=== PATIENT | female | born 1990 | race Caucasian/White ===

== ENCOUNTER 2019-01-07 20:36 | Emergency (ER) | payer BC ==
[2019-01-07] MEDS ORDERED: ONDANSETRON 4 MG/2 ML VIAL IVP STA (21:32)
[2019-01-07 21:47] LABS: Appearance,Urine Clear (Clear); Bilirubin,Urine Negative (Negative); Blood,Urine Negative (Negative); Color,Urine Light Yellow; Glucose,Urine (UA) Negative (Negative); Ketones,Urine Negative (Negative); Leukocyte Esterase,Urine Negative (Negative); Nitrite,Urine Negative (Negative); Protein,Urine Negative (Negative); Specific Gravity,Urine 1.008 (1.001-1.035); Urobilinogen,Urine <2.0 mg/dL (<2.0)
[2019-01-07 21:54] LABS: Basophils % (A) 0 %; Eosinophils # (A) 0.1 k/uL (0-0.7); Eosinophils % (A) 1 %; HCT 39.8 % (34.0-46.0); HGB 13.7 gm/dL (11.4-16.0); Lymphocytes # (A) 2.9 k/uL (1.0-4.8); Lymphocytes % (A) 33 %; MCH 29.4 pg (25.0-35.0); MCHC 34.6 g/dL (31.0-37.0); Mean Platelet Volume 8.5; Monocytes # (A) 0.3 k/uL (0-1.0); Monocytes % (A) 4 %; Neutrophils # (A) 5.2 k/uL (1.3-7.7); Neutrophils % (A) 59 %; Platelet Count 305 k/uL (150-450); RBC 4.68 m/uL (3.80-5.40); RDW 12.3 % (11.5-15.5); WBC 8.7 k/uL (3.8-10.6)
[2019-01-07 22:05] LABS: ALT 45 U/L (9-52); AST 34 U/L (14-36); Albumin 4.4 g/dL (3.5-5.0); Alkaline Phosphatase 96 U/L (38-126); Amylase 35 U/L (30-110); Anion Gap 7 mmol/L; Blood Urea Nitrogen 10 mg/dL (7-17); C Reactive Protein <5.0 mg/L (<10.0); Calcium 9.7 mg/dL (8.4-10.2); Carbon Dioxide 28 mmol/L (22-30); Chloride 102 mmol/L (98-107); Glucose 89 mg/dL (74-99); Lipase 71 U/L (23-300); Potassium 3.7 mmol/L (3.5-5.1); Sodium 137 mmol/L (137-145); Total Bilirubin 0.5 mg/dL (0.2-1.3); Total Protein 7.2 g/dL (6.3-8.2)
--- NOTE | 2019-01-07 23:26 | ED ---
Abdominal Pain HPI - General Chief Complaint: Abdominal Pain Stated Complaint: Flank pain Time Seen by Provider: 01/07/19 21:32 Source: patient Mode of arrival: ambulatory Limitations: no limitations - History of Present Illness Initial Comments: Patient is a 28-year-old woman presenting with right lower quadrant abdominal pain. She states that her symptoms began with a little bit of nausea last night and then early this morning pain just to the right of the umbilicus. She describes as constant, somewhat aching but there was also burning component. She states she did have a little bit of nausea which she has not had any vomiting and no change in bowel movements. No urinary symptoms. No vaginal discharge. When she discussed the symptoms with family members there was concern for appendicitis and she comes here to be evaluated. Patient declines analgesic at history and physical MD Complaint: abdominal pain -: hour(s) Location: RLQ Radiation: none Migration to: no migration Severity: moderate Quality: aching, burning Consistency: constant Improves With: nothing Worsens With: nothing Associated Symptoms: nausea - Related Data LMP (females 10-50): last week Home Medications Medication Instructions Recorded Confirmed Ibuprofen [Motrin Ib] 800 mg PO Q8H 01/07/19 01/07/19 Qtm-Avci-Mjbhy Acid 1 cap PO DAILY 01/07/19 01/07/19 [-U Capsule (formulary)] Allergies Allergy/AdvReac Type Severity Reaction Status Date / Time WHEAT Allergy Unknown Uncoded 01/07/19 21:50 Review of Systems ROS Statement: Those systems with pertinent positive or pertinent negative responses have been documented in the HPI. ROS Other: All systems not noted in ROS Statement are negative. Constitutional: Denies: fever, chills Respiratory: Denies: cough, dyspnea Cardiovascular: Denies: chest pain, palpitations Gastrointestinal: Reports: abdominal pain, nausea. Denies: vomiting, diarrhea, constipation, melena, hematochezia Genitourinary: Denies: dysuria, frequency, hematuria, abnormal menses Musculoskeletal: Denies: back pain Skin: Denies: rash Neurological: Denies: headache Past Medical History Past Medical History: No Reported History History of Any Multi-Drug Resistant Organisms: None Reported Additional Past Surgical History / Comment(s): right wrist 2011 Past Psychological History: No Psychological Hx Reported Smoking Status: Never smoker Past Alcohol Use History: Occasional Past Drug Use History: None Reported General Exam Limitations: no limitations General appearance: alert, in no apparent distress Head exam: Present: atraumatic, normocephalic Eye exam: Present: normal appearance. Absent: scleral icterus, conjunctival injection Neck exam: Present: normal inspection, full ROM Respiratory exam: Present: normal lung sounds bilaterally. Absent: respiratory distress, wheezes, rales, rhonchi, stridor Cardiovascular Exam: Present: regular rate, normal rhythm, normal heart sounds GI/Abdominal exam: Present: soft, tenderness, normal bowel sounds (Mild right lower quadrant tenderness without rebound or guarding). Absent: distended, guarding, rebound, rigid, mass Extremities exam: Present: normal inspection, normal capillary refill. Absent: pedal edema, calf tenderness Back exam: Present: normal inspection. Absent: CVA tenderness (R), CVA tenderness (L) Neurological exam: Present: alert Skin exam: Present: warm, dry, intact, normal color. Absent: rash Course Vital Signs 01/07/19 21:23 Temperature 98.2 F Pulse Rate 76 Respiratory 18 Rate Blood Pressure 133/82 O2 Sat by Pulse 100 Oximetry Medical Decision Making - Medical Decision Making Patient is 28-year-old woman with right lower quadrant pain. I reviewed the lab studies with the patient and discussed imaging. At this point she would rather wait and have reevaluation if she is not improving. I discussed appropriate further care and follow-up as well as return parameters and all questions answered. - Lab Data Result diagrams: 01/07/19 21:40 01/07/19 21:40 Lab Results 01/07/19 01/07/19 01/07/19 Range/Units 21:36 21:36 21:40 WBC (3.8-10.6) k/uL RBC (3.80-5.40) m/uL Hgb (11.4-16.0) gm/dL Hct (34.0-46.0) % MCV (80.0-100.0) fL MCH (25.0-35.0) pg MCHC (31.0-37.0) g/dL RDW (11.5-15.5) % Plt Count (150-450) k/uL Neutrophils % % Lymphocytes % % Monocytes % % Eosinophils % % Basophils % % Neutrophils # (1.3-7.7) k/uL Lymphocytes # (1.0-4.8) k/uL Monocytes # (0-1.0) k/uL Eosinophils # (0-0.7) k/uL Basophils # (0-0.2) k/uL Sodium 137 (137-145) mmol/L Potassium 3.7 (3.5-5.1) mmol/L Chloride 102 (98-107) mmol/L Carbon Dioxide 28 (22-30) mmol/L Anion Gap 7 mmol/L BUN 10 (7-17) mg/dL Creatinine 0.73 (0.52-1.04) mg/dL Est GFR (CKD-EPI)AfAm >90 (>60 ml/min/1.73 sqM) Est GFR (CKD-EPI)NonAf >90 (>60 ml/min/1.73 sqM) Glucose 89 (74-99) mg/dL Calcium 9.7 (8.4-10.2) mg/dL Total Bilirubin 0.5 (0.2-1.3) mg/dL AST 34 (14-36) U/L ALT 45 (9-52) U/L Alkaline Phosphatase 96 (38-126) U/L C-Reactive Protein <5.0 (<10.0) mg/L Total Protein 7.2 (6.3-8.2) g/dL Albumin 4.4 (3.5-5.0) g/dL Amylase 35 (30-110) U/L Lipase 71 (23-300) U/L Urine Color Light Yellow Urine Appearance Clear (Clear) Urine pH 6.0 (5.0-8.0) Ur Specific Melbeta 1.008 (1.001-1.035) Urine Protein Negative (Negative) Urine Glucose (UA) Negative (Negative) Urine Ketones Negative (Negative) Urine Blood Negative (Negative) Urine Nitrite Negative (Negative) Urine Bilirubin Negative (Negative) Urine Urobilinogen <2.0 (<2.0) mg/dL Ur Leukocyte Esterase Negative (Negative) Urine HCG, Qual Not Detected (Not Detectd) 01/07/19 Range/Units 21:40 WBC 8.7 (3.8-10.6) k/uL RBC 4.68 (3.80-5.40) m/uL Hgb 13.7 (11.4-16.0) gm/dL Hct 39.8 (34.0-46.0) % MCV 85.0 (80.0-100.0) fL MCH 29.4 (25.0-35.0) pg MCHC 34.6 (31.0-37.0) g/dL RDW 12.3 (11.5-15.5) % Plt Count 305 (150-450) k/uL Neutrophils % 59 % Lymphocytes % 33 % Monocytes % 4 % Eosinophils % 1 % Basophils % 0 % Neutrophils # 5.2 (1.3-7.7) k/uL Lymphocytes # 2.9 (1.0-4.8) k/uL Monocytes # 0.3 (0-1.0) k/uL Eosinophils # 0.1 (0-0.7) k/uL Basophils # 0.0 (0-0.2) k/uL Sodium (137-145) mmol/L Potassium (3.5-5.1) mmol/L Chloride (98-107) mmol/L Carbon Dioxide (22-30) mmol/L Anion Gap mmol/L BUN (7-17) mg/dL Creatinine (0.52-1.04) mg/dL Est GFR (CKD-EPI)AfAm (>60 ml/min/1.73 sqM) Est GFR (CKD-EPI)NonAf (>60 ml/min/1.73 sqM) Glucose (74-99) mg/dL Calcium (8.4-10.2) mg/dL Total Bilirubin (0.2-1.3) mg/dL AST (14-36) U/L ALT (9-52) U/L Alkaline Phosphatase (38-126) U/L C-Reactive Protein (<10.0) mg/L Total Protein (6.3-8.2) g/dL Albumin (3.5-5.0) g/dL Amylase (30-110) U/L Lipase (23-300) U/L Urine Color Urine Appearance (Clear) Urine pH (5.0-8.0) Ur Specific Melbeta (1.001-1.035) Urine Protein (Negative) Urine Glucose (UA) (Negative) Urine Ketones (Negative) Urine Blood (Negative) Urine Nitrite (Negative) Urine Bilirubin (Negative) Urine Urobilinogen (<2.0) mg/dL Ur Leukocyte Esterase (Negative) Urine HCG, Qual (Not Detectd) Disposition Clinical Impression: Abdominal pain Disposition: HOME SELF-CARE Condition: Good Is patient prescribed a controlled substance at d/c from ED?: No Referrals: Karime Johnson MD [Primary Care Provider] - 1-2 days
[2019-01-07 23:49] VITALS: BP 122/74; PULSE 67; RESP 20; TEMP 98
== END 2019-01-07 23:49 | disposition home or self-care (01) ==
LOC: EC 20:36
DX: R10.31 Right lower quadrant pain (principal); R11.0 Nausea; Z79.1 Long term (current) use of non-steroidal anti-inflammatories (NSAID); Z91.018 Allergy to other foods
CPT/HCPCS: 36415; 80053; 82150; 83690; 85025; 86140; 81003; 81025; 99283; 96374; J2405

== ENCOUNTER 2019-07-20 00:28 | Emergency (ER) | payer BC ==
[2019-07-20 00:40] VITALS: BP 125/82; PULSE 73; RESP 20; TEMP 98.6
[2019-07-20] MEDS ORDERED: SODIUM CHLORIDE 0.9% 500 ML 500 ML IV ONE (00:46)
--- NOTE | 2019-07-20 00:57 | ED ---
Female Urogenital HPI - General Chief complaint: Vaginal Bleeding Stated complaint: 7 weeks Preg, Vaginal Bleeding Time Seen by Provider: 07/20/19 00:46 Source: patient Mode of arrival: ambulatory Limitations: no limitations - History of Present Illness Initial comments: This patient is 28-year-old woman who presents to be evaluated for vaginal bleeding. The patient states that this came on approximately an hour ago while she was getting ready go to sleep. Patient describes it as small amount, consistent with spotting. The patient notes that she is in early , she has had an ultrasound then by the ultrasound she believes she is about 7 weeks in 2 days . Patient states that she did have some cramping last week but she is not having any currently. MD Complaint: vaginal bleeding Onset/Timin -: hour(s) Improves with: none Worsens with: none Patient : Yes Number of weeks : 7 Associated Symptoms: denies other symptoms - Related Data Sexually active: Yes Home Medications Medication Instructions Recorded Confirmed Thm-Jzaa-Jczrr Acid 1 cap PO DAILY 01/07/19 07/22/19 [-U Capsule (formulary)] Allergies Allergy/AdvReac Type Severity Reaction Status Date / Time gluten AdvReac Nausea/MIGR Verified 07/22/19 12:31 LEILANI Review of Systems ROS Statement: Those systems with pertinent positive or pertinent negative responses have been documented in the HPI. ROS Other: All systems not noted in ROS Statement are negative. Constitutional: Denies: fever Respiratory: Denies: cough, dyspnea Cardiovascular: Denies: chest pain, palpitations Gastrointestinal: Reports: constipation. Denies: abdominal pain, nausea, vomiting, diarrhea Genitourinary: Reports: abnormal menses. Denies: urgency, dysuria, frequency, hematuria, discharge Musculoskeletal: Denies: back pain Skin: Denies: rash Neurological: Denies: headache Past Medical History Past Medical History: No Reported History History of Any Multi-Drug Resistant Organisms: None Reported Additional Past Surgical History / Comment(s): right wrist 2011 Past Psychological History: No Psychological Hx Reported Smoking Status: Never smoker Past Alcohol Use History: Occasional Past Drug Use History: None Reported General Exam Limitations: no limitations General appearance: alert, in no apparent distress Head exam: Present: atraumatic, normocephalic Eye exam: Present: normal appearance. Absent: scleral icterus, conjunctival injection ENT exam: Present: normal oropharynx Neck exam: Present: normal inspection Respiratory exam: Present: normal lung sounds bilaterally. Absent: respiratory distress, wheezes, rales, rhonchi, stridor Cardiovascular Exam: Present: regular rate, normal rhythm, normal heart sounds. Absent: systolic murmur, diastolic murmur, rubs, gallop GI/Abdominal exam: Present: soft. Absent: distended, tenderness, guarding, karon ound, rigid, mass Extremities exam: Present: normal inspection, normal capillary refill. Absent: pedal edema, calf tenderness Back exam: Present: normal inspection. Absent: CVA tenderness (R), CVA tenderness (L) Neurological exam: Present: alert Skin exam: Present: warm, dry, intact, normal color. Absent: rash Course Vital Signs 07/20/19 00:38 Temperature 98.6 F Pulse Rate 73 Respiratory 20 Rate Blood Pressure 125/82 O2 Sat by Pulse 100 Oximetry Medical Decision Making - Lab Data Result diagrams: 07/20/19 01:20 Lab Results 07/20/19 07/20/19 07/20/19 Range/Units 01:20 01:20 01:20 WBC 7.5 (3.8-10.6) k/uL RBC 4.20 (3.80-5.40) m/uL Hgb 12.7 (11.4-16.0) gm/dL Hct 34.8 (34.0-46.0) % MCV 83.0 (80.0-100.0) fL MCH 30.3 (25.0-35.0) pg MCHC 36.5 (31.0-37.0) g/dL RDW 11.4 L (11.5-15.5) % Plt Count 265 (150-450) k/uL Neutrophils % 59 % Lymphocytes % 34 % Monocytes % 3 % Eosinophils % 1 % Basophils % 0 % Neutrophils # 4.5 (1.3-7.7) k/uL Lymphocytes # 2.6 (1.0-4.8) k/uL Monocytes # 0.3 (0-1.0) k/uL Eosinophils # 0.1 (0-0.7) k/uL Basophils # 0.0 (0-0.2) k/uL HCG, Quant 8424.9 mIU/mL Blood Type O Negative Blood Type Confirm Blood Type Recheck No Previous Record Bld Type Recheck Status CABO Indicated 07/20/19 Range/Units 01:49 WBC (3.8-10.6) k/uL RBC (3.80-5.40) m/uL Hgb (11.4-16.0) gm/dL Hct (34.0-46.0) % MCV (80.0-100.0) fL MCH (25.0-35.0) pg MCHC (31.0-37.0) g/dL RDW (11.5-15.5) % Plt Count (150-450) k/uL Neutrophils % % Lymphocytes % % Monocytes % % Eosinophils % % Basophils % % Neutrophils # (1.3-7.7) k/uL Lymphocytes # (1.0-4.8) k/uL Monocytes # (0-1.0) k/uL Eosinophils # (0-0.7) k/uL Basophils # (0-0.2) k/uL HCG, Quant mIU/mL Blood Type Blood Type Confirm O Negative Blood Type Recheck Bld Type Recheck Status Disposition Clinical Impression: Threatened Disposition: HOME SELF-CARE Condition: Fair Instructions (If sedation given, give patient instructions): Threatened Miscarriage (ED) Additional Instructions: Your hCG level today is 8425. Is patient prescribed a controlled substance at d/c from ED?: No Referrals: Karime Johnson MD [Primary Care Provider] - 1-2 days
[2019-07-20 01:32] LABS: Basophils % (A) 0 %; Eosinophils # (A) 0.1 k/uL (0-0.7); Eosinophils % (A) 1 %; HCT 34.8 % (34.0-46.0); HGB 12.7 gm/dL (11.4-16.0); Lymphocytes # (A) 2.6 k/uL (1.0-4.8); Lymphocytes % (A) 34 %; MCH 30.3 pg (25.0-35.0); MCHC 36.5 g/dL (31.0-37.0); Mean Platelet Volume 6.7; Monocytes # (A) 0.3 k/uL (0-1.0); Monocytes % (A) 3 %; Neutrophils # (A) 4.5 k/uL (1.3-7.7); Neutrophils % (A) 59 %; Platelet Count 265 k/uL (150-450); RDW 11.4 % (11.5-15.5); WBC 7.5 k/uL (3.8-10.6)
--- NOTE | 2019-07-20 01:40 | US ---
EXAMINATION TYPE: Transabdominal DATE OF EXAM: 07/20/2019 1:25 AM COMPARISON: NONE CLINICAL HISTORY: pain/bleeding, R/O ectopic. Bleeding EXAM PERFORMED: Transvaginal (TV) and Transabdominal (TA) EXAM MEASUREMENTS: GESTATIONAL AGE / DATING Physician Established: (8 weeks/6 days) EDC: 02/23/2020 Dates by LMP: (8 weeks/6 days) EDC: 02/23/2020 Dates by First Scan: No previous this is first scan Dates by Current Scan for: (5 weeks/6 days) EDC: 03/15/2020 MATERNAL ANATOMY Uterus: 8.8 x 3.3 x 4.2 cm Right Ovary: Obscured by bowel gas Left Ovary: Obscured by bowel gas Post CDS / Adnexa: wnl Presence of free fluid: no Presence of corpus luteal cyst: no Presence of subchorionic bleed: no GESTATION / SURVEY CRL: .30 (5 weeks/6 days) Yolk Sac (normal less than 6mm): .3 Heart Rate: No heart tones see. IUP: Demise Beta HcG (if available): Not available at this time No heart tones seen. IMPRESSION: 3 mm pole without cardiac activity seen. This is consistent with intrauterine demise at a pproximately 5 weeks 6 days gestation.
== END 2019-07-20 02:20 | disposition home or self-care (01) ==
LOC: EC 00:28
DX: O20.0 Threatened abortion (principal); Z3A.01 Less than 8 weeks gestation of pregnancy; Z91.018 Allergy to other foods
CPT/HCPCS: 36415; 76801; 76817; 84702; 85025; 86900; 86901; 99284

== ENCOUNTER 2019-07-22 12:02 | Emergency (ER) | payer BC ==
[2019-07-22] MEDS ORDERED: Rhogam IMMUNE GLOBULIN 1,500 UNIT/1 ML IM ONE (13:06)
--- NOTE | 2019-07-22 13:45 | ED ---
Female Urogenital HPI - General Chief complaint: Urogenital Stated complaint: miscarriage Time Seen by Provider: 07/22/19 12:46 Source: patient, RN notes reviewed, old records reviewed Mode of arrival: ambulatory Limitations: no limitations - History of Present Illness Initial comments: Latrice is a 28-year-old female presents emergency department today for needing a RhoGAM injection. She was seen in emergency department 3 days ago was sinus threatened miscarriage. She states she followed up with her [facility], and they completed ultrasound again today which showed no evidence of intrauterine she did have bleeding and clotting since that time. Patient reports that she did not receive any RhoGAM shot on her initial ER visit and she does h ave a negative blood type. She reports is her second miscarriage within the past year. She states she's was to follow-up with her [facility] NUTRITION[facility] next week to have further testing and possible genetic testing relation to her history of miscarriage. - Related Data Home Medications Medication Instructions Recorded Confirmed Mce-Otel-Gncre Acid 1 cap PO DAILY 01/07/19 07/22/19 [-U Capsule (formulary)] Allergies Allergy/AdvReac Type Severity Reaction Status Date / Time gluten AdvReac Nausea/MIGR Verified 07/22/19 12:31 LEILANI Review of Systems ROS Statement: Those systems with pertinent positive or pertinent negative responses have been documented in the HPI. ROS Other: All systems not noted in ROS Statement are negative. Past Medical History Past Medical History: No Reported History History of Any Multi-Drug Resistant Organisms: None Reported Additional Past Surgical History / Comment(s): right wrist 2010 Past Psychological History: No Psychological Hx Reported Smoking Status: Never smoker Past Alcohol Use History: Occasional Past Drug Use History: None Reported General Exam - General Exam Comments Initial Comments: 28-year-old female. Alert and oriented 3. No distress. Limitations: no limitations General appearance: alert, in no apparent distress Head exam: Present: atraumatic, normocephalic, normal inspection Eye exam: Present: normal appearance, PERRL, EOMI. Absent: scleral icterus, conjunctival injection, periorbital swelling ENT exam: Present: normal exam Neck exam: Present: normal inspection. Absent: tenderness, meningismus, lymphadenopathy Respiratory exam: Present: normal lung sounds bilaterally. Absent: respiratory distress, wheezes, rales, rhonchi, stridor Cardiovascular Exam: Present: regular rate, normal rhythm, normal heart sounds. Absent: systolic murmur, diastolic murmur, rubs, gallop, clicks GI/Abdominal exam: Present: soft, normal bowel sounds. Absent: distended, tenderness, guarding, rebound, rigid Extremities exam: Present: normal inspection, full ROM, normal capillary refill. Absent: tenderness, pedal edema, joint swelling, calf tenderness Back exam: Present: normal inspection Neurological exam: Present: alert, oriented X3, CN II-XII intact Psychiatric exam: Present: normal affect, normal mood Skin exam: Present: warm, dry, intact, normal color. Absent: rash Course Vital Signs 07/22/19 12:15 Temperature 98.6 F Pulse Rate 77 Respiratory 18 Rate Blood Pressure 120/76 O2 Sat by Pulse 99 Oximetry Medical Decision Making - Medical Decision Making 28-year-old female presents requesting a RhoGAM shot. She is here after having bleeding and diagnosed with threatened miscarriage. She is Rh- blood type. Patient's hCG level on the was 8427. Today HCG is now 942. Patient is supposed to take medication and follow-up with her [facility] NUTRITION[facility] in 2 days for recheck. I discussed that this does confirm the Patient having miscarriage. She will receive RhoGAM in the ER. Discussed appropriate follow-up with her OB. She has no pain or distress. She denies any other complaints this time. Discharged after RhoGAM in stable condition. - Lab Data Lab Results 07/22/19 07/22/19 Range/Units 13:10 13:55 HCG, Quant 924.7 mIU/mL Blood Type O Negative Blood Type Recheck O Neg Bld Type Recheck Status No Antibody Screen NEGATIVE Disposition Clinical Impression: Miscarriage Disposition: HOME SELF-CARE Condition: Good Instructions (If sedation given, give patient instructions): Miscarriage (ED) Additional Instructions: She is advised to a follow-up with her [facility] NUTRITION[facility] in 2 days. Return to the emergency department if any alarming signs or symptoms occur. Is patient prescribed a controlled substance at d/c from ED?: No Referrals: Karime Johnson MD [Primary Care Provider] - 1-2 days Time of Disposition: 14:07
[2019-07-22 16:07] VITALS: BP 123/65; PULSE 78; RESP 20; TEMP 98
== END 2019-07-22 15:05 | disposition home or self-care (01) ==
LOC: EC 12:02
DX: O03.9 Complete or unspecified spontaneous abortion without complication (principal); Z98.890 Other specified postprocedural states; Z91.018 Allergy to other foods
CPT/HCPCS: 36415; 86900; 86901; 86850; 84702; 99284; 96372; J2791

== ENCOUNTER 2020-05-25 14:05 | Outpatient (CLI) | payer BC ==
[2020-05-25 15:38] VITALS: BP 112/78; PULSE 86; RESP 18; TEMP 98.2
--- NOTE | 2020-05-25 18:00 | P.MSEPDOC ---
Presenting Problems - Arrival Data Date of Arrival on Unit: 05/25/20 Time of Arrival on Unit: 14:05 Mode of Transport: Ambulatory - Complaint OB-Reason for Admission/Chief Complaint: Rule Out PROM Comment: pt presented to triage for possible PROM at 0730 this am, no leaking since Medical History - Information : 3 Para: 0 Term: 0 : 0 Abortions: Spontaneous or Elective: 2 Number of Living Children: 0 - Gestational Age Gestational Age by ERNESTO (wks/days): 27 Weeks and 2 Days Review of Systems - Review of Systems Constitutional: No problems Breast: No problems ENT: No problems Cardiovascular: No problems Respiratory: No problems Gastrointestinal: No problems Genitourinary: No problems Musculoskeletal: No problems Neurological: No problems Skin: No problems Vital Signs - Temperature Temperature: 98.2 F Temperature Source: Temporal Artery Scan - Pulse Right Brachial Pulse Rate: 86 Pulse Assessment Method: Automatic Cuff - Respirations Respiratory Rate: 18 Oxygen Delivery Method: Room Air O2 Sat by Pulse Oximetry: 98 - Blood Pressure Right Arm Blood Pressure: 112/78 Blood Pressure Mean: 89 Blood Pressure Source: Automatic Cuff Medical Screen Scoring (Pre) - Cervical Exam Dilation: 0 cm = 0 Effacement: Exam Deferred Membranes: Intact - Uterine Contractions Frequency: N/A Duration: N/A Intensity: N/A - Maternal Vital Signs Maternal Temperature: N/A Maternal Blood Pressure: N/A Signs of Preeclampsia: N/A Maternal Respirations: N/A - Maternal Trauma Maternal Trauma: N/A - Assessment - Baby A Baseline FHR: 135 Heart Rate - NICHD Category: Category I (Normal) = 0 Position: N/A Station: N/A - Total Score - Baby A Total Score - Baby A: 0 - Total Score - Baby B Total Score - Baby B: 0 - Total Score - Baby C Total Score - Baby C: 0 - Level of Risk - Baby A Level of Risk - Baby A: Low (0-5) - Level of Risk - Baby B Level of Risk - Baby B: Low (0-5) - Level of Risk - Baby C Level of Risk - Baby C: Low (0-5) Physician Notification (Pre) - Physician Notified Physician Notified Date: 05/25/20 Physician Notified Time: 14:28 New Order Received: Yes - Notification Comment Comment: amniosure negative, cat 1 FHT, no contractions, cervix closed, pt to follow up with her OB on Mon Disposition - Disposition OB Disposition: Discharge to home, Written follow up instructions reviewed Discharge Date: 05/25/20 Discharge Time: 15:15 I agree with the RN Medical Screening Exam: Yes Risk & Benefit of care provided described in d/c instruction: Yes Diagnosis: FALSE LABOR BEFORE 37 COMPLETED WEEKS OF GEST, THIRD TRI
== END 2020-05-25 15:15 | disposition home or self-care (01) ==
LOC: FBPOP 14:05
PROVIDERS: ATTEND Obstetrics & Gynecology
DX: O47.03 False labor before 37 completed weeks of gestation, third trimester (principal); Z3A.27 27 weeks gestation of pregnancy
CPT/HCPCS: 84112; 99213

== ENCOUNTER 2020-08-03 14:47 | Inpatient (IN) | payer BC ==
[2020-08-03] MEDS ORDERED: AMPICILLIN 2,000 MG in SODIUM CHLORIDE 0.9% 100 ML IVPB STA (15:29)
[2020-08-03] MEDS ORDERED: OXYTOCIN 10 UNIT/ML 1 ML VIAL IM PRN (15:29)
[2020-08-03] MEDS ORDERED: LIDOCAINE 0.5% (PF) 5 MG/ML (50 ML SDV) SQ PRN (15:29)
[2020-08-03] MEDS ORDERED: METHYLERGONOVINE 0.2 MG/ML 1 ML AMP IM PRN (15:29)
[2020-08-03] MEDS ORDERED: TERBUTALINE 1 MG/ML VIAL SQ PRN (15:29)
[2020-08-03] MEDS ORDERED: CARBOPROST TROMETHAMINE 250 MCG/ML 1 ML AMP IM PRN (15:29)
[2020-08-03] MEDS: LACTATED RINGERS 1,000 ML IV SCH ×2 (15:35→16:18)
[2020-08-03 16:01] LABS: Basophils % (A) 0 %; Eosinophils # (A) 0.1 k/uL (0-0.7); Eosinophils % (A) 1 %; HCT 33.4 % (34.0-46.0); HGB 11.8 gm/dL (11.4-16.0); Lymphocytes # (A) 1.5 k/uL (1.0-4.8); Lymphocytes % (A) 14 %; MCH 30.5 pg (25.0-35.0); MCHC 35.3 g/dL (31.0-37.0); MCV 86.5 fL (80.0-100.0); Mean Platelet Volume 8.5; Monocytes # (A) 0.3 k/uL (0-1.0); Monocytes % (A) 3 %; Neutrophils # (A) 8.9 k/uL (1.3-7.7); Neutrophils % (A) 82 %; Platelet Count 293 k/uL (150-450); RBC 3.86 m/uL (3.80-5.40); WBC 10.9 k/uL (3.8-10.6)
[2020-08-03 16:13] LABS: ALT 19 U/L (4-34); AST 26 U/L (14-36); African American GFR (CKD) >90 (>60 ml/min/1.73 sqM); Blood Urea Nitrogen 7 mg/dL (7-17); LDH 485 U/L (313-618); Non-African American GFR(CKD) >90 (>60 ml/min/1.73 sqM); Uric Acid 4.7 mg/dL (3.7-7.4)
[2020-08-03] MEDS ORDERED: SODIUM CHLORIDE 0.9% 100 ML BAG ONE (16:30)
[2020-08-03] MEDS ORDERED: fentaNYL (PF) 50 MCG/ML 5 ML AMP ONE (16:30)
[2020-08-03] MEDS ORDERED: ROPIVACAINE 5MG/ML 20ML VIAL ONE (16:30)
--- NOTE | 2020-08-03 17:54 | P.HPOB ---
History of Present Illness H&P Date: 08/03/20 Chief Complaint: Intrauterine at term: Suspected gestational hyper tension: BHUMI Ocampo is a 29-year-old at 37 weeks gestation who arrives following rupture membranes at approximately 1145 this morning. Patient relates that she was in her corrugated box machine operator's office down in the [facility] and she was having a nonstress test because they were concerned about some asymmetrical swelling she was having and they were concerned about gestational hypertension versus preeclampsia. The nonstress test Angella was nonreactive so she was sent for a biophysical profile which was fine. She relates that when she started have the ultrasound done that she felt a pop and be leak of fluid and at that point she informed computer support technician that she was leaking some fluid and she was told that it was likely mucous plug or some urine and a continued with the ultrasound did and as far as I can tell did not inform anyone else. Following the biophysical profile she went to work in [place] and she continued to leak so she and her came to clear in [place] where verification of spotting is rupture membranes was made. She was leoncio every 2-3 minutes and was making cervical change she was dilated initially to 2 cm heart percent effaced -1 station and then approxi mately hour to hour and half later she was 300 and 0 station. At this time she is 600% and +1 station. She relates that she has had 2 other miscarriages in last 12 months or so as well. She seems very reliable in her information. Her blood pressures today are a little elevated anywhere from 140s to 150s over 90s. Preeclampsia clamps bus far have been negative but a urine is pending. She denies any other medical issues or problems. She denies past medical history. Past surgical history did does include wisdom tooth surgery and wrist surgery. ALLERGIES none social history is unremarkable and family history is noncontributory. A category 1 tracing is noted as well. An epidural has al ready been placed at this time. She is much more comfortable at this time. Should blood pressures continued to rise, she may needle ablate all or other antihypertensive. However at this time with negative pre-clamped labs we'll continue to monitor closely. Past Medical History Past Medical History: No Reported History History of Any Multi-Drug Resistant Organisms: None Reported Additional Past Surgical History / Comment(s): right wrist 2010 Past Anesthesia/Blood Transfusion Reactions: Previous Problems w/ Anesthesia, Family History of Problems w/ Anesthesia Past Psychological History: No Psychological Hx Reported Smoking Status: Never smoker Past Alcohol Use History: Occasional Past Drug Use History: None Reported - Past Family History Mother Family Medical History: No Reported History Medications and Allergies Home Medications Medication Instructions Recorded Confirmed Type Qcn-Bojy-Ohwel Acid 1 cap PO DAILY 01/07/19 08/03/20 History [-U Capsule (formulary)] RX: Aspirin [Children's Aspirin] 81 mg PO DAILY 05/25/20 08/03/20 History Allergies Allergy/AdvReac Type Severity Reaction Status Date / Time gluten AdvReac Nausea/MIGR Verified 08/03/20 15:01 LEILANI Exam Osteopathic Statement: *. No significant issues noted on an osteopathic structural exam other than those noted in the History and Physical/Consult. Vital Signs Temp Pulse Resp BP Pulse Ox 08/03/20 15:20 97.6 F 96 18 185/99 99 Intake and Output 08/03/20 08/03/20 08/03/20 06:59 14:59 22:59 Other: Weight 86.183 kg - OBG Physical Exam Breast: both: normal (no masses) Abdomen: bowel sounds normal, no diffuse tenderness, no bruit present, no guarding noted, no hepatomegaly, no splenomegaly, no mass Vulva: both: normal Vagina: normal moisture, no discharge Cervix: no lesion, no discharge Uterus: normal size, normal contour Adnexa: both: normal Anus/Rectum: normal perianal skin, no rectal mass, no hemorrhoids, heme negative Results Result Diagrams: 08/03/20 15:48 08/03/20 15:48 Abnormal Lab Results - Last 24 Hours (Table) 08/03/20 Range/Units 15:48 WBC 10.9 H (3.8-10.6) k/uL Hct 33.4 L (34.0-46.0) % Neutrophils # 8.9 H (1.3-7.7) k/uL
[2020-08-03] MEDS ORDERED: AMPICILLIN 1,000 MG in SODIUM CHLORIDE 0.9% 50 ML IVPB SCH (19:30)
[2020-08-03] MEDS ORDERED: LABETALOL 5 MG/ML VIAL MDV IVP STA (19:34)
[2020-08-03 20:09] LABS: Protein/Creatinine Ratio,Urine 0.188
--- NOTE | 2020-08-03 22:19 | P.PROBDLV ---
Vaginal Delivery Note - . Vaginal Delivery Note: Patient progressed to complete and pushing with vacuum assisted vaginal delivery of a viable male over a second degree perineal laceration. Should be noted that the patient pushed for a little over 90 minutes and had complete physical exhaustion and with the presenting part feeling asynclitic a decision to assist with vacuum was made. She brought the baby to the perineum but was unable to get the baby out the rest of the way on vacuum was applied and was p umped to 40 mmHg and with her pushing and one pole the baby was delivered without difficulty and the vacuum was disengaged. Anterior posterior shoulders were then easily delivered. Baby was delivered from right occiput transverse position. With some asynclitism. Once baby was fully delivered mouth nares were bulb suctioned and baby was placed on mother's abdomen where the umbilical cord was allowed to pulsate for 45 seconds prior to clamping and cutting with spontaneous cry noted. Nursery personnel was present and assumed care. Placenta was then delivered intact and Pitocin was added to the IV. scores were 9 and 10 at one and 5 minutes respectively and the weight was 6 lbs. 14 oz. Second degree perineal laceration was then repaired with 3-0 Vicryl following 1% Xylocaine for analgesia. Inspection of the vagina also revealed a left vaginal wall laceration which was also repaired with 3-0 Vicryl fine 1% Xylocaine for analgesia in a running fashion. Both mother and baby are stable following delivery.
[2020-08-03] MEDS ORDERED: diphenhydrAMINE 25 MG CAP PO PRN (22:22)
[2020-08-03] MEDS ORDERED: diphenhydrAMINE 50 MG CAP PO PRN (22:22)
[2020-08-03] MEDS ORDERED: BENZOCAINE/MENTHOL SPRAY 1 GM/SPRAY AEROSOL TOPICAL PRN (22:22)
[2020-08-03] MEDS ORDERED: ACETAMINOPHEN TAB 325 MG TAB PO PRN (22:22)
[2020-08-03] MEDS ORDERED: HYDROCORTISONE 2.5% RECTAL CREAM 30 GM TUBE RECTAL PRN (22:22)
[2020-08-03] MEDS ORDERED: HYDROcodone/APAP 5-325MG 1 EACH TAB PO PRN (22:22)
[2020-08-03] MEDS ORDERED: LANOLIN CREAM 5 GM TUBE TOPICAL PRN (22:22)
[2020-08-03] MEDS ORDERED: MEASLES-MUMPS-RUBELLA VACC/PF 12,500 UNIT/0.5 ML VIAL SQ ONE (22:22)
[2020-08-03] MEDS ORDERED: SIMETHICONE 80 MG CHEWABLE PO PRN (22:22)
[2020-08-03] MEDS ORDERED: diphenhydrAMINE 50 MG/ML 1 ML VIAL IVP PRN ×2 (22:22)
[2020-08-03] MEDS ORDERED: OXYTOCIN 20 UNITS/1000 ML NS 1,000 ML IV SCH (22:30)
[2020-08-03] MEDS ORDERED: ZOLPIDEM 5 MG TAB PO PRN (23:00)
[2020-08-03] MEDS: IBUPROFEN 600 MG TAB PO PRN (23:42)
[2020-08-04 00:01] VITALS: RESP 16
[2020-08-04 04:07] LABS: Basophils % (A) 0 %; Eosinophils % (A) 0 %; HCT 23.4 % (34.0-46.0); Lymphocytes # (A) 1.2 k/uL (1.0-4.8); Lymphocytes % (A) 9 %; MCH 31.1 pg (25.0-35.0); MCV 86.4 fL (80.0-100.0); Mean Platelet Volume 10.2; Monocytes # (A) 0.4 k/uL (0-1.0); Monocytes % (A) 3 %; Neutrophils # (A) 11.8 k/uL (1.3-7.7); Neutrophils % (A) 87 %; Platelet Count 241 k/uL (150-450); RBC 2.71 m/uL (3.80-5.40); WBC 13.6 k/uL (3.8-10.6)
[2020-08-04 04:32] LABS: HGB 8.4 gm/dL (11.4-16.0)
--- NOTE | 2020-08-04 08:03 | P.PNOBGVD ---
Subjective - Subjective Principal diagnosis: day 1 Interval history: Negative seen and evaluated. Her vital signs morning are improved. Her tachycardia from last night is also improved. She relates that she is going to approximate had an hour of blood that is relatively red. We did discuss that she had a fairly significant left vaginal wall laceration was bleeding but did not appear to be bleeding when we finished last night with repair, but if she continued to have bleeding would need to do an evaluation make sure that that is not where as the bleeding is coming from. Her vital signs again are otherwise stable with improved blood pressure. In talking to her she denies any signs or symptoms of hypovolemia despite having a hemoglobin of 8.4 which is down from 11 last night. She is ambulating without any difficulty denies dizziness or weakness. Is not short of breath and has no other issues this morning. We'll continue to monitor closely. Heart otherwise regular, lungs clear, extremities without pain. Abdomen soft uterus is firm and lochia is again reported to be moderate. There is no heavy flow of bright red blood and she relates that its only just a little bit more than a trickle but is continuing. Should there still be bleeding from her laceration consideration for either repair or vaginal packing can certainly be made to work towards hemostasis. Patient reports: Reports appetite normal, Reports voiding normally, Reports pain well controlled, Reports ambulating normally : doing well Objective - Latest Vital Signs Latest vital signs: Vital Signs Temp Pulse Resp BP Pulse Ox 08/04/20 03:04 97.8 F 84 16 132/83 97 08/04/20 00:00 98.6 F 107 H 16 141/87 08/03/20 23:30 98.3 F 107 H 16 157/90 08/03/20 23:00 99.0 F 96 16 158/87 08/03/20 22:45 98.8 F 102 H 16 157/94 08/03/20 22:30 99.1 F 96 16 159/95 08/03/20 22:15 99.0 F 91 16 155/74 08/03/20 22:00 98.8 F 82 18 149/77 08/03/20 15:20 97.6 F 96 18 185/99 99 08/03/20 15:04 97.6 F 96 18 185/99 99 Intake and Output 08/03/20 08/04/20 08/04/20 22:59 06:59 14:59 Other: # Voids 1 Weight 86.183 kg - Exam Lungs: bilateral: normal Chest: Normal S1, Normal S2 Extremities: Present: normal Abdomen: Present: normal appearance, soft Uterus: Present: normal, firm - Labs Labs: Abnormal Lab Results - Last 24 Hours (Table) 08/03/20 08/04/20 Range/Units 15:48 03:58 WBC 10.9 H 13.6 H (3.8-10.6) k/uL RBC 2.71 L (3.80-5.40) m/uL Hgb 8.4 L D (11.4-16.0) gm/dL Hct 33.4 L 23.4 L (34.0-46.0) % Neutrophils # 8.9 H 11.8 H (1.3-7.7) k/uL
[2020-08-04] MEDS: SENNOSIDES-DOCUSATE SODIUM 1 EACH TAB PO SCH ×2 (08:07→21:19)
[2020-08-04] MEDS: IBUPROFEN 600 MG TAB PO PRN ×3 (08:07→21:19)
--- NOTE | 2020-08-04 09:19 | P.PN ---
Progress Note - Text Progress Note Date: 08/04/20 Seen and reevaluated. bleeding much better now. exam done laceration repairs appear intact and are not bleeding. cont care for now. all questions answered
[2020-08-04] MEDS: LABETALOL 100 MG TAB PO SCH ×2 (18:37→21:19)
[2020-08-05] MEDS: IBUPROFEN 600 MG TAB PO PRN (03:26)
[2020-08-05] MEDS: SENNOSIDES-DOCUSATE SODIUM 1 EACH TAB PO SCH (08:16)
--- NOTE | 2020-08-05 08:53 | P.DS ---
Providers Date of admission: 08/03/20 15:19 Expected date of discharge: 08/05/20 Attending physician: Javy Lemus Primary care physician: Stated None Hospital Course: patient is doing very well day 2. She is ambulating, voiding and tolerating her diet. She voices no complaints. Her vital signs are stable and she is afebrile. Blood pressures remained mildly elevated in the 140s to 150s over 90s. She did receive 1 dose of labetalol last night done get a dose this morning. Prescription for labetalol was 4 to the pharmacy she does check her blood pressures at home so she can certainly if her blood pressures above 150 or above 100 take a labetalol she will follow up with me or my office in 2-3 days and we will retest her blood pressure for evaluation of labetalol. Otherwise she is to follow up with her geopolitics teacher in 6 weeks. Vital signs are stable and afebrile. Heart regular, lungs clear, extremities without pain. Abdomen is soft, uterus is firm bowel sounds are noted. Lochia is reported be light Assessment day 2. Plan discharged home follow up with her geopolitics teacher in 6 weeks in follow-up for blood pressure check in 2-3 days Patient Condition at Discharge: Good Plan - Discharge Summary New Discharge Prescriptions: New Ibuprofen [Motrin] 600 mg PO Q6HR PRN #30 tab PRN Reason: Pain Labetalol [Trandate] 100 mg PO BID 30 Days #60 tab No Action Dxr-Xgyk-Eflcq Acid [-U Capsule (formulary)] 1 cap PO DAILY Aspirin [Children's Aspirin] 81 mg PO DAILY Discharge Medication List Nhx-Uhai-Etwmv Acid [-U Capsule (formulary)] 1 cap PO DAILY 01/07/19 [History] Aspirin [Children's Aspirin] 81 mg PO DAILY 05/25/20 [History] Ibuprofen [Motrin] 600 mg PO Q6HR PRN #30 tab 08/05/20 [Rx] Labetalol [Trandate] 100 mg PO BID 30 Days #60 tab 08/05/20 [Rx] Follow up Appointment(s)/Referral(s): Javy Lemus DO [Doctor of Osteopathic Medicine] - 1 Week Activity/Diet/Wound Care/Special Instructions: no heavy lifting, limit stairs and driving and pelvic rest. If any high temperatures, heavy bleeding, or severe pain call my office Discharge Disposition: HOME SELF-CARE
[2020-08-05 09:01] VITALS: BP 130/88; PULSE 77; TEMP 98.4
[2020-08-05] MEDS: LABETALOL 100 MG TAB PO SCH (09:03)
== END 2020-08-05 11:30 | disposition home or self-care (01) | DRG 807 ==
LOC: FBPOP 14:47 → 4FBP 15:19
PROVIDERS: ADMIT Obstetrics & Gynecology; ATTEND Obstetrics & Gynecology
PROC: 0KQM0ZZ Repair Perineum Muscle, Open Approach (ICD-10-PCS; principal; 2020-08-03)
PROC: 3E0R3BZ Introduction of Anesthetic Agent into Spinal Canal, Percutaneous Approach (ICD-10-PCS; principal; 2020-08-03)
PROC: 10D07Z6 Extraction of Products of Conception, Vacuum, Via Natural or Artificial Opening (ICD-10-PCS; principal; 2020-08-03)
PROC: 00HU33Z Insertion of Infusion Device into Spinal Canal, Percutaneous Approach (ICD-10-PCS; principal; 2020-08-03)
DX: O13.4 Gestational [pregnancy-induced] hypertension without significant proteinuria, complicating childbirth (principal); Z37.0 Single live birth; O70.1 Second degree perineal laceration during delivery; Z3A.37 37 weeks gestation of pregnancy; Z79.82 Long term (current) use of aspirin; Z91.018 Allergy to other foods
CPT/HCPCS: 59025; 82565; 82570; 83615; 84112; 84156; 84450; 84460; 84520; 84550; 85025; 86850; 86900; 86901; 87340; 90707; 99213

== ENCOUNTER → 2020-08-27 | Outpatient (CLI) | payer BC ==
--- NOTE | 2020-08-27 15:38 | US ---
EXAMINATION TYPE: US pelvic complete DATE OF EXAM: 08/27/2020 COMPARISON: OB US CLINICAL HISTORY: O72.1 Post bleeding. TECHNIQUE: Transabdominal (TA). Transabdominal sonographic images of the pelvis were acquired. Tra nsvaginal US was deferred as patient is only 3 weeks post . Date of LMP: unsure with recent delivery 08/03/20 EXAM MEASUREMENTS: Uterus: 10.1 x 7.9 x 3.9 cm Endometrial Stripe: 2.0 cm Right Ovary: 2.5 x 1.2 x 1.4 cm Left Ovary: 2.3 x 1.7 x 1.0 cm 1. Uterus: Anteverted; questionable serpiginous structure level of the lower uterine segment may rep resent vessel 2. Endometrium: Thought to be thickened 3. Right Ovary: multiple follicles seen with largest simple cyst= 0.9 x 0.7 x 0.9cm 4. Left Ovary: couple of follicle seen with larger = 0.6 x 0.7 x 0.5cm. 5. Bilateral Adnexa: wnl 6. Posterior cul-de-sac: wnl IMPRESSION: Endometrial stripe appears thickened on transabdominal scanning
== END | disposition home or self-care (01) ==
LOC: RADUSWWP 14:17
PROVIDERS: ATTEND Obstetrics & Gynecology
DX: R93.89 Abnormal findings on diagnostic imaging of other specified body structures (principal)
CPT/HCPCS: 76856

== ENCOUNTER → 2022-04-12 | Outpatient (CLI) | payer BC ==
[2022-04-12 14:50] LABS: HCT 40.4 % (37.2-46.3); HGB 13.4 g/dL (12.0-15.0); MCH 29.5 pg (27.0-32.0); MCHC 33.2 g/dL (32.0-37.0); Mean Platelet Volume 11.4 fL (9.5-12.2); NRBC Per 100 WBC 0 /100 WBCS (0.0-0.0); Platelet Count 290 X 10*3/uL (140-440); RBC 4.54 X 10*6/uL (4.10-5.20); RDW 11.9 % (11.5-14.5); WBC 5.02 X 10*3/uL (4.50-10.00)
[2022-04-12 15:08] LABS: ALT 14 U/L (8-44); AST 23 U/L (13-35); African American GFR (CKD) 107.2 (60.0-200.0); Albumin 4.9 g/dL (3.8-4.9); Albumin/Globulin Ratio 2.09 (1.60-3.17); Alkaline Phosphatase 101 U/L (41-126); BUN/Creat Ratio 11.79 Ratio (12.00-20.00); Blood Urea Nitrogen 9.9 mg/dL (9.0-27.0); Calcium 10.1 mg/dL (8.7-10.3); Carbon Dioxide 25.3 mmol/L (20.0-27.5); Chloride 101 mmol/L (96-109); Chol/HDL Ratio 3.05 Ratio; Globulin 2.4 g/dL (1.6-3.3); Glucose 92 mg/dL (70-110); LDL Cholesterol,Calculated 124.9 mg/dL (0.0-131.0); Non-African American GFR(CKD) 92.5 (60.0-200.0); Potassium 4.5 mmol/L (3.5-5.5); Sodium 138 mmol/L (135-145); Total Protein 7.3 g/dL (6.2-8.2); VLDL Calculation 12.92 mg/dL (5.00-40.00)
[2022-04-12 15:15] LABS: INR 0.93 (0.90-1.11); Prothrombin Time 10.5 sec (9.9-11.9)
== END | disposition home or self-care (01) ==
LOC: LABWHC1 10:01
PROVIDERS: ATTEND Family Medicine
DX: Z15.89 Genetic susceptibility to other disease (principal); E66.3 Overweight; E06.3 Autoimmune thyroiditis; N96 Recurrent pregnancy loss; Z87.898 Personal history of other specified conditions; K59.00 Constipation, unspecified; D68.9 Coagulation defect, unspecified
CPT/HCPCS: 36415; 80053; 80061; 83735; 84443; 84481; 85027; 85610

== ENCOUNTER → 2023-03-31 | Outpatient (CLI) | payer BC ==
[2023-03-31 15:51] LABS: ALT 14 U/L (8-44); AST 17 U/L (13-35); Albumin 4.6 d/dL (3.8-4.9); Alkaline Phosphatase 79 U/L (41-126); BUN/Creat Ratio 12.12 Ratio (12.00-20.00); Blood Urea Nitrogen 9.7 mg/dL (9.0-27.0); Calcium 9.6 mg/dL (8.7-10.3); Carbon Dioxide 25.5 mmol/L (21.6-31.8); Chloride 103 mmol/L (96-109); Chol/HDL Ratio 2.67 Ratio; Glucose 90 mg/dL (70-110); LDL Cholesterol,Calculated 99.2 mg/dL (0.0-131.0); Potassium 4.5 mmol/L (3.5-5.5); Rheumatoid Factor, Qnt <15 IU/mL (0-15); Sodium 137 mmol/L (135-145); Total Bilirubin 0.7 mg/dL (0.3-1.2); Total Protein 6.6 d/dL (6.2-8.2); VLDL Calculation 10.32 mg/dL (5.00-40.00)
[2023-03-31 16:05] LABS: Basophils # (A) 0.03 X 10*3/uL (0.00-0.10); Basophils % (A) 0.7 %; Eosinophils # (A) 0.02 X 10*3/uL (0.04-0.35); Eosinophils % (A) 0.4 %; HCT 38.8 % (37.2-46.3); HGB 13.3 d/dL (12.0-15.0); Lymphocytes # (A) 1.32 X 10*3/uL (0.90-5.00); Lymphocytes % (A) 28.8 %; MCH 30.6 pg (27.0-32.0); MCHC 34.3 d/dL (32.0-37.0); MCV 89.2 FL (80.0-97.0); Mean Platelet Volume 11.5 FL (9.5-12.2); Monocytes # (A) 0.22 X 10*3/uL (0.20-1.00); Monocytes % (A) 4.8 %; NRBC Per 100 WBC 0 X 10*3/uL (0.00-0.01); Neutrophils # (A) 2.98 X 10*3/uL (1.80-7.70); Neutrophils % (A) 64.9 %; Platelet Count 284 X 10*3/uL (140-440); RBC 4.35 X 10*6/uL (4.10-5.20); RDW 11.7 % (11.5-14.5); WBC 4.59 X 10*3/uL (4.50-10.00)
[2023-04-04 12:47] LABS: ANA Pattern SPK
== END | disposition home or self-care (01) ==
LOC: LABWHC1 07:26
PROVIDERS: ATTEND Physician Assistant Medical
DX: Z13.1 Encounter for screening for diabetes mellitus (principal); Z13.220 Encounter for screening for lipoid disorders; R07.0 Pain in throat; R21 Rash and other nonspecific skin eruption
CPT/HCPCS: 36415; 80053; 80061; 83036; 85025; 86038; 86039; 86431

== ENCOUNTER → 2023-04-11 | Outpatient (CLI) | payer BC ==
--- NOTE | 2023-04-12 08:20 | CT ---
EXAMINATION TYPE: CT soft tissue neck w con DATE OF EXAM: 04/11/2023 5:06 PM COMPARISON: None HISTORY: rt side internal neck pain. CT DLP: 354.10 mGycm Automated exposure control for dose reduction was used. CONTRAST: CT scan of the neck is performed following with IV Contrast, patient injected with 100 mL of Isovue 3 00. Axial images are obtained, coronal and sagittal reformatted images are reviewed. FINDINGS: Airway: No gross abnormality seen. Parotid/submandibular glands: No gross abnormality seen. Carotid/Vascular Structures: Patent Osseous Structures: Intact Other: Biapical pleural thickening with one 2 mm subpleural right apical low-lying cerebellar tonsils . Nonspecific punctate calcifications soft tissues adjacent to the oropharynx on the right IMPRESSION: 1. No acute process. There is an area of localized pain consider ultrasound. 2. Low lying cerebellar tonsils can be associated with Chiari I malformation. 3. Calcification adjacent to the oropharynx on the right axial image 64 appears to lie outside the ex pected normal course of the parotid duct.
== END | disposition home or self-care (01) ==
LOC: RADCTMAIN 16:35
PROVIDERS: ATTEND Family Medicine
DX: J35.8 Other chronic diseases of tonsils and adenoids (principal); M54.2 Cervicalgia; R07.0 Pain in throat
CPT/HCPCS: 70491; Q9967

== ENCOUNTER 2023-09-05 15:54 | Emergency (ER) | payer BC ==
--- NOTE | 2023-09-05 16:04 | ED ---
General Adult HPI - General Stated complaint: 14wks preg-cramping Time Seen by Provider: 09/05/23 16:03 Source: patient, RN notes reviewed Mode of arrival: ambulatory Limitations: no limitations - History of Present Illness Initial comments: 32-year-old female presents emergency Department chief complaint abdominal pain and . Patient states that she is A2 currently 14 weeks states her [employer]NA[facility] [employer] [facility] for increasing abdominal pain. Patient's is concern as she's had miscarriages to 12 weeks along. Patient denies any vaginal bleeding or vaginal discharge no dysuria no other complaints. She states she has left- sided abdominal pain. - Related Data Home Medications Medication Instructions Recorded Confirmed Sbs-Hggf-Xvgay Acid 1 cap PO DAILY 01/07/19 08/03/20 [-U Capsule (formulary)] Aspirin [Children's Aspirin] 81 mg PO DAILY 05/25/20 08/03/20 Previous Rx's Medication Instructions Recorded Ibuprofen [Motrin] 600 mg PO Q6HR PRN #30 tab 08/05/20 Labetalol [Trandate] 100 mg PO BID 30 Days #60 tab 08/05/20 Allergies Allergy/AdvReac Type Severity Reaction Status Date / Time gluten AdvReac Nausea/MIGR Verified 09/05/23 16:04 LEILANI Review of Systems ROS Statement: Those systems with pertinent positive or pertinent negative responses have been documented in the HPI. ROS Other: All systems not noted in ROS Statement are negative. Past Medical History Past Medical History: No Reported History History of Any Multi-Drug Resistant Organisms: None Reported Additional Past Surgical History / Comment(s): right wrist 2010 Past Anesthesia/Blood Transfusion Reactions: Previous Problems w/ Anesthesia, Family History of Problems w/ Anesthesia Past Psychological History: No Psychological Hx Reported Smoking Status: Never smoker Past Alcohol Use History: Occasional Past Drug Use History: None Reported - Past Family History Mother Family Medical History: No Reported History General Exam - General Exam Comments Initial Comments: Visual Physical Exam Vital signs reviewed General: Well-appearing, nontoxic, no acute distress. Head: Normocephalic, atraumatic Eyes: PERRLA, EOMI ENT: Airway patent Chest: Nonlabored breathing Skin: No visual rash, normal skin tone Neuro: Alert and oriented 3 Musculoskeletal: No gross abnormalities Limitations: no limitations General appearance: alert, in no apparent distress Head exam: Present: atraumatic, normocephalic, normal inspection Eye exam: Present: normal appearance, PERRL, EOMI. Absent: scleral icterus, conjunctival injection, periorbital swelling ENT exam: Present: normal exam, normal oropharynx, mucous membranes moist Neck exam: Present: normal inspection, full ROM. Absent: tenderness, meningismus, lymphadenopathy Respiratory exam: Present: normal lung sounds bilaterally. Absent: respiratory distress, wheezes, rales, rhonchi, stridor Cardiovascular Exam: Present: regular rate, normal rhythm, normal heart sounds. Absent: systolic murmur, diastolic murmur, rubs, gallop, clicks GI/Abdominal exam: Present: soft, normal bowel sounds. Absent: distended, tenderness, guarding, rebound, rigid Course Vital Signs 09/05/23 16:01 Temperature 98.1 F Pulse Rate 93 Respiratory 18 Rate Blood Pressure 133/84 O2 Sat by Pulse 100 Oximetry Medical Decision Making - Medical Decision Making I performed a quick note portion of the chart signed Toi Morales PA-C Was pt. sent in by a medical professional or institution (SHERICE Castrejon, COMPONENT TECHNICIAN, urgent care, hospital, or intermediate...) When possible be specific @ -[MANAGER FRONT Did you speak to anyone other than the patient for history (EMS, parent, family, police, friend...)? What history was obtained from this source @ -No Did you review nursing and triage notes (agree or disagree)? Why? @ -I reviewed and agree with nursing and triage notes Were old charts reviewed (outside hosp., previous admission, EMS record, old EKG, old radiological studies, urgent care reports/EKG's, intermediate records)? Report findings @ -No old charts were reviewed Differential Diagnosis (chest pain, altered mental status, abdominal pain women, abdominal pain men, vaginal bleeding, weakness, fever, dyspnea, syncope, headache, dizziness, GI bleed, back pain, seizure, CVA, palpatations, mental health, musculoskeletal)? @ -Abdominal pain , ligament pain, UTI, miscarriage EKG interpreted by me (3pts min.). @ -None X-rays interpreted by me (1pt min.). @ -None done CT interpreted by me (1pt min.). @ -None done U/S interpreted by me (1pt. min.). @ -Ultrasound shows normal intrauterine heart rate was 151, possible low-lying placenta What testing was considered but not performed or refused? (CT, X-rays, U/S, labs)? Why? @ -None What meds were considered but not given or refused? Why? @ -None Did you discuss the management of the patient with other professionals (professionals i.e. , PA, COMPONENT TECHNICIAN, lab, RT, psych nurse, older adult social work specialist, university teacher, teacher, chief technology officer, case checker)? Give summary @ -No Was smoking cessation discussed for >3mins.? @ -No Was critical care preformed (if so, how long)? @ -No Were there social determinants of health that impacted care today? How? (Homeles sness, low income, unemployed, alcoholism, drug addiction, transportation, low edu. Level, literacy, decrease access to med. care, residential, rehab)? @ -No Was there de-escalation of care discussed even if they declined (Discuss DNR or withdrawal of care, Hospice)? DNR status @ -No What co-morbidities impacted this encounter? (DM, HTN, Smoking, COPD, CAD, Cancer, CVA, ARF, Chemo, Hep., AIDS, mental health diagnosis, sleep apnea, morbid obesity)? @ -None Was patient admitted / discharged? Hospital course, mention meds given and route, prescriptions, significant lab abnormalities, going to OR and other pertinent info. @ -Discharge patient ultrasound was unremarkable other than possible low-lying placenta patient's urinalysis unremarkable patient discharged in stable condition. Undiagnosed new problem with uncertain prognosis? @ -No Drug Therapy requiring intensive monitoring for toxicity (Heparin, Nitro, Insulin, Cardizem)? @ -No Were any procedures done? @ -No Diagnosis/symptom? @ -Abdominal pain Acute, or Chronic, or Acute on Chronic? @ -Acute Uncomplicated (without systemic symptoms) or Complicated (systemic symptoms)? @ -Uncomplicated Side effects of treatment? @ -No Exacerbation, Progression, or Severe Exacerbation? @ -No Poses a threat to life or bodily function? How? (Chest pain, USA, MS, pneumonia, PE, COPD, DKA, ARF, appy, cholecystitis, CVA, Diverticulitis, Homicidal, Suicidal, threat to staff... and all critical care pts) @ -No - Lab Data Lab Results 11/14/23 Range/Units 16:10 Urine Color Light Yellow Urine Appearance Clear (Clear) Urine pH 6.0 (5.0-8.0) Ur Specific [place] 1.012 (1.001-1.035) Urine Protein Negative (Negative) Urine Glucose (UA) Negative (Negative) Urine Ketones 1+ H (Negative) Urine Blood Negative (Negative) Urine Nitrite Negative (Negative) Urine Bilirubin Negative (Negative) Urine Urobilinogen <2.0 (<2.0) mg/dL Ur Leukocyte Esterase Negative (Negative) Disposition Clinical Impression: Abdominal pain during Disposition: HOME SELF-CARE Condition: Stable Instructions (If sedation given, give patient instructions): Abdominal Pain in (ED) Additional Instructions: Please return to the Emergency Department if symptoms worsen or any other concerns. Is patient prescribed a controlled substance at d/c from ED?: No Referrals: Jostin Rowan MD [Primary Care Provider] - 1-2 days Time of Disposition: 17:10
[2023-09-05 16:28] LABS: Appearance,Urine Clear (Clear); Bilirubin,Urine Negative (Negative); Blood,Urine Negative (Negative); Color,Urine Light Yellow; Glucose,Urine (UA) Negative (Negative); Ketones,Urine 1+ (Negative); Leukocyte Esterase,Urine Negative (Negative); Nitrite,Urine Negative (Negative); Protein,Urine Negative (Negative); Specific Gravity,Urine 1.012 (1.001-1.035); Urobilinogen,Urine <2.0 mg/dL (<2.0)
--- NOTE | 2023-09-05 16:55 | US ---
EXAMINATION TYPE: US OB >= 14 wk fetus DATE OF EXAM: 09/05/2023 COMPARISON: None CLINICAL INDICATION: Female, 32 years old with history of pain; LLQ pain x 4 days. No vaginal bleedin g TECHNIQUE: Transabdominal (TA) ultrasound of the gravid uterus GESTATIONAL AGE / DATING Physician Established: (14 weeks/2 days) EDC: 03/03/24 Dates by First Scan: No previous this is first scan Dates by Current Scan: (15 weeks/4 days) EDC: 02/23/24 Beta HCG (if available): Not available at this time SURVEY IUP: Single PLACENTA: Fundal PREVIA: Placenta is judged to be somewhat low lying, no gross placenta previa. RAMÍREZ: 14.8 cm Normal CERVICAL LENGTH (transabdominal: norm > 3.0cm): 3.5 cm BIOMETRY PRESENTATION: Variable LIE: Transverse with head maternal R BPD: 3.02 cm 15 weeks / 4 days HC: 10.99 cm 15 weeks / 2 days AC: 9.47 cm 15 weeks / 4 days FL: 1.71 cm 15 weeks / 0 days ESTIMATED WEIGHT IN GRAMS: 121.1 grams ESTIMATED WEIGHT IN LBS/OZ: 0 lbs. 4 oz. WEIGHT PERCENTAGE BASED ON ESTABLISHED DATES: 95.8% HC/AC: 1.16 Normal FL/AC: 18.0 Normal HEART RATE: 151 bpm RHYTHM: Normal No detailed anatomic assessment of the fetus was made at this time. Recommend nonemergent anatomy sca n when appropriate. Single Live IUP seen measuring 15 weeks 4 days. Possible low lying placenta IMPRESSION: 1. Single, live IUP measuring 15 weeks 4 days. 2. Possible low-lying placenta.
[2023-09-05 18:06] VITALS: BP 111/70; PULSE 81; RESP 16; TEMP 97.9
== END 2023-09-05 19:43 | disposition home or self-care (01) ==
LOC: EC 15:54
DX: O26.892 Other specified pregnancy related conditions, second trimester (principal); Z88.8 Allergy status to other drugs, medicaments and biological substances; Z3A.15 15 weeks gestation of pregnancy
CPT/HCPCS: 76805; 81003; 99284

== ENCOUNTER 2023-12-02 07:30 | Outpatient (CLI) | payer BC ==
[2023-12-02 08:52] VITALS: BP 116/62; PULSE 88; RESP 17; TEMP 97.5
--- NOTE | 2023-12-15 10:01 | P.MSEPDOC ---
Presenting Problems - Arrival Data Date of Arrival on Unit: 12/02/23 Time of Arrival on Unit: 07:30 Mode of Transport: Ambulatory - Complaint OB-Reason for Admission/Chief Complaint: Rule Out PROM Comment: pt presents to triage for possible PROM at 2300 last night, had a gush of fluid but was in the shower so unsure if PROM or not, no fluid leaking since Medical History - Information : 4 Para: 1 Term: 1 : 0 Abortions: Spontaneous or Elective: 2 Number of Living Children: 1 - Gestational Age Gestational Age by ERNESTO (wks/days): 26 Weeks and 6 Days Review of Systems - Review of Systems Constitutional: No problems Breast: No problems ENT: No problems Cardiovascular: No problems Respiratory: No problems Gastrointestinal: No problems Genitourinary: No problems Musculoskeletal: No problems Neurological: No problems Skin: No problems Vital Signs - Temperature Temperature: 97.5 F Temperature Source: Temporal Artery Scan - Pulse Right Brachial Pulse Rate: 88 Pulse Assessment Method: Automatic Cuff - Respirations Respiratory Rate: 17 Oxygen Delivery Method: Room Air O2 Sat by Pulse Oximetry: 100 - Blood Pressure Right Arm Blood Pressure: 116/62 Blood Pressure Mean: 80 Blood Pressure Source: Automatic Cuff Medical Screen Scoring - Assessment - Baby A Baseline FHR: 130 Heart Rate - NICHD Category: Category I (Normal) Physician Notification - Physician Notified Physician Notified Date: 12/02/23 Physician Notified Time: 08:08 Physician: Taya Hamilton New Order Received: Yes - Notification Comment Comment: amnisure negative, cat1 FHT's, pt has scheduled appt with her OB office on monday in [place], pt discharged home Maternal Triage Index - Maternal Triage Index Presenting for scheduled procedure w/no complaint: No - Stat/Priority 1 Stat Priority 1: No - Urgent/Priority 2 Urgent Priority 2: Yes Provider Notified: Taya Hamilton Provider Notified Time: 08:08 Criteria Met for Priority 2: pt presents to triage for possible PROM at 2300 last night, had a gush of fluid but was in the shower so unsure if PROM or not, no fluid leaking since Disposition - Disposition OB Disposition: Triage, Discharge to home, Written follow up instructions reviewed Discharge Date: 12/02/23 Discharge Time: 08:17 I agree with the RN Medical Screening Exam: Yes Case reviewed; plan agreed upon as documented in EMR&OBIX.: Yes Diagnosis: RELATED CONDITIONS, UNSPECIFIED, SECOND TRIMESTER
== END 2023-12-02 08:17 | disposition home or self-care (01) ==
LOC: FBPOP 07:30
PROVIDERS: ATTEND Obstetrics & Gynecology Obstetrics
DX: O47.02 False labor before 37 completed weeks of gestation, second trimester (principal); Z3A.26 26 weeks gestation of pregnancy; Z79.82 Long term (current) use of aspirin; Z91.018 Allergy to other foods
CPT/HCPCS: 84112; 99213

== ENCOUNTER 2024-02-17 20:30 | Outpatient (CLI) | payer BC ==
[2024-02-17 22:08] VITALS: BP 128/76; PULSE 93; RESP 16; TEMP 97.4
--- NOTE | 2024-02-19 08:19 | P.MSEPDOC ---
Presenting Problems - Arrival Data Date of Arrival on Unit: 02/17/24 Time of Arrival on Unit: 20:30 Mode of Transport: Ambulatory - Complaint OB-Reason for Admission/Chief Complaint: Other Comment: Patient presents to triage after slipping in bathroom, no trama to belly. Patient states when she slipping she did not fall she caught herself. Since the fall patient has experienced abdominal cramping, rating pain 4/10. Medical History - Information : 4 Para: 1 Term: 1 : 0 Abortions: Spontaneous or Elective: 2 Number of Living Children: 1 - Gestational Age Gestational Age by ERNESTO (wks/days): 37 Weeks and 6 Days Review of Systems - Review of Systems Constitutional: No problems Breast: No problems ENT: No problems Cardiovascular: No problems Respiratory: No problems Gastrointestinal: No problems Genitourinary: No problems Musculoskeletal: No problems Neurological: No problems Skin: No problems Vital Signs - Temperature Temperature: 97.4 F Temperature Source: Temporal Artery Scan - Pulse Pulse Oximetery Pulse Rate: 93 Pulse Assessment Method: Pulse Oximetry - Respirations Respiratory Rate: 16 Oxygen Delivery Method: Room Air O2 Sat by Pulse Oximetry: 96 - Blood Pressure Right Arm Blood Pressure: 128/76 Blood Pressure Mean: 93 Blood Pressure Source: Automatic Cuff Medical Screen Scoring - Cervical Exam Membranes: Intact - Assessment - Baby A Baseline FHR: 125 Heart Rate - NICHD Category: Category I (Normal) NST: Reactive Physician Notification - Physician Notified Physician Notified Date: 02/17/24 Physician Notified Time: 21:18 Physician: Gina Dobbs New Order Received: No - Notification Comment Comment: Dr. Dobbs called with report on triage patient. RN reported on maternal status, status, reative NST, 2 contractions traced since TOCO being placed. Patient has been monitored by own OB since 32 weeks for decreased movement and contractions, biweekly NST. RN reported that patient slipped in bathroom without fall and no trama to belly. Orders to discharge home. Maternal Triage Index - Maternal Triage Index Presenting for scheduled procedure w/no complaint: No - Stat/Priority 1 Stat Priority 1: No - Urgent/Priority 2 Urgent Priority 2: No - Prompt/Priority 3 Prompt Priority 3: No - Non-Urgent/Priority 4 Non-Urgent Priority 4: Yes Criteria Met for Priority 4: Patient presents to triage after slipping in bathroom, no trama to belly. Patient states when she slipping she did not fall she caught herself. Since the fall patient has experienced abdominal cramping, rating pain 4/10. Disposition - Disposition OB Disposition: Discharge to home Discharge Date: 02/17/24 Discharge Time: 21:25 I agree with the RN Medical Screening Exam: Yes Case reviewed; plan agreed upon as documented in EMR&OBIX.: Yes Diagnosis: PRIMARY INADEQUATE CONTRACTIONS
== END 2024-02-17 21:25 | disposition home or self-care (01) ==
LOC: FBPOP 20:30
PROVIDERS: ATTEND Obstetrics & Gynecology
DX: O62.0 Primary inadequate contractions (principal); Z3A.37 37 weeks gestation of pregnancy; Z91.018 Allergy to other foods
CPT/HCPCS: 59025; 99213

== ENCOUNTER → 2024-05-16 | Outpatient (CLI) | payer BC ==
[2024-05-16 10:37] LABS: Basophils # (A) 0.04 X 10*3/uL (0.00-0.10); Eosinophils # (A) 0.03 X 10*3/uL (0.04-0.35); Eosinophils % (A) 0.7 %; HCT 35.6 % (37.2-46.3); HGB 12.1 g/dL (12.0-15.0); Lymphocytes # (A) 1.69 X 10*3/uL (0.90-5.00); Lymphocytes % (A) 41.2 %; MCH 28.9 pg (27.0-32.0); MCV 85.2 FL (80.0-97.0); Mean Platelet Volume 10.9 FL (9.5-12.2); Monocytes # (A) 0.22 X 10*3/uL (0.20-1.00); Monocytes % (A) 5.4 %; NRBC Per 100 WBC 0 X 10*3/uL (0.00-0.01); Neutrophils # (A) 2.11 X 10*3/uL (1.80-7.70); Neutrophils % (A) 51.5 %; Platelet Count 258 X 10*3/uL (140-440); RBC 4.18 X 10*6/uL (4.10-5.20); RDW 11.7 % (11.5-14.5)
[2024-05-16 15:30] LABS: BUN/Creat Ratio 16.11 Ratio (12.00-20.00); Blood Urea Nitrogen 14.5 mg/dL (9.0-27.0); Carbon Dioxide 23.9 mmol/L (21.6-31.8); Chloride 102 mmol/L (96-109); Glucose 104 mg/dL (70-110); LDL Cholesterol,Calculated 111.8 mg/dL (0.0-131.0); Potassium 3.9 mmol/L (3.5-5.5); Sodium 138 mmol/L (135-145)
[2024-05-16 15:31] LABS: ALT 22 U/L (8-44); AST 19 U/L (13-35); Albumin 4.6 g/dL (3.8-4.9); Albumin/Globulin Ratio 2.19 Ratio (1.60-3.17); Alkaline Phosphatase 124 U/L (41-126); Calcium 9.6 mg/dL (8.7-10.3); Globulin 2.1 g/dL (1.6-3.3); T4, Free (Free Thyroxine) 1.44 ng/dL (0.80-1.80); Total Bilirubin 0.3 mg/dL (0.3-1.2); Total Protein 6.7 g/dL (6.2-8.2)
== END | disposition home or self-care (01) ==
LOC: LABWHC1 07:33
PROVIDERS: ATTEND Family Medicine
DX: Z00.00 Encounter for general adult medical examination without abnormal findings (principal); R53.83 Other fatigue
CPT/HCPCS: 36415; 80053; 80061; 83036; 84439; 84443; 84481; 85025

== ENCOUNTER 2024-12-13 07:47 | Day surgery (SDC) | payer BC ==
[2024-12-10 17:26] VITALS: BMI 25.8
[~2024-12-13 07:47] MED LIST: HYDROmorphone 0.5 MG/0.5 ML SYRINGE IVP PRN; MIDAZOLAM 2 MG/2 ML VIAL IV PRN
[2024-12-13] MEDS: IV FLUID CONTINUATION 1,000 ML IV ONE ×2 (08:03→13:14)
[2024-12-13] MEDS: ACETAMINOPHEN TAB 500 MG TAB PO PRN (08:31)
[2024-12-13] MEDS: ONDANSETRON 4 MG/2 ML VIAL IVP ONE (08:31)
[2024-12-13] MEDS: DEXAMETHASONE SOD PHOSPHATE 4 MG/ML 1 ML VIAL IV ONE (08:32)
[2024-12-13] MEDS: SCOPOLAMINE 1 MG/72 HR PATCH TRANSDERM ONE (08:34)
[2024-12-13] MEDS: fentaNYL (PF) 50 MCG/ML 2 ML AMP IVP ONE (09:40)
[2024-12-13] MEDS: MIDAZOLAM 2 MG/2 ML VIAL IVP ONE (09:40)
[2024-12-13] MEDS: HEPARIN SODIUM,PORCINE 5,000 UNIT/ML 1 ML VIAL SQ PRN (09:58)
[2024-12-13] MEDS ORDERED: NEOSTIGMINE 1 MG/ML 10 ML VIAL ONE (10:31)
[2024-12-13] MEDS ORDERED: DEXAMETHASONE SOD PHOSPHATE 4 MG/ML 1 ML VIAL ONE (10:31)
[2024-12-13] MEDS ORDERED: ROCURONIUM 10 MG/ML (5 ML VIAL) IV ONE (10:31)
[2024-12-13] MEDS ORDERED: MIDAZOLAM 2 MG/2 ML VIAL ONE (10:31)
[2024-12-13] MEDS ORDERED: ROPIVACAINE 5 MG/ML 30 ML VIAL ONE (10:31)
[2024-12-13] MEDS ORDERED: GLYCOPYRROLATE 0.2 MG/ML 2 ML VIAL ONE (10:31)
[2024-12-13] MEDS ORDERED: PROPOFOL 10 MG/ML 20 ML VIAL IV ONE (10:31)
[2024-12-13] MEDS ORDERED: LIDOCAINE 1% INJ 10MG/ML (20 ML MDV) ONE (10:31)
[2024-12-13] MEDS ORDERED: KETOROLAC 15 MG/ML 1 ML VIAL ONE (10:31)
[2024-12-13] MEDS ORDERED: SUCCINYLCHOLINE CHLORIDE 200 MG/10 ML VIAL IV ONE (10:31)
[2024-12-13] MEDS ORDERED: ONDANSETRON 4 MG/2 ML VIAL ONE (10:31)
[2024-12-13] MEDS ORDERED: fentaNYL (PF) 50 MCG/ML 2 ML AMP ONE (10:31)
[2024-12-13] MEDS: BUPIVACAINE (PF) 0.25% 30 ML VIAL SQ ONE (11:20)
--- NOTE | 2024-12-13 11:51 | P.OP ---
Date of Procedure: 12/13/24 Procedure(s) Performed: PREOPERATIVE DIAGNOSIS: Umbilical hernia POSTOPERATIVE DIAGNOSIS: Same PROCEDURE: Open repair reducible umbilical hernia with mesh SURGEON: Dr. Head ANESTHESIA: General EBL: 10 cc OPERATIVE PROCEDURE DETAILS: The patient was placed in the operating table in the supine position. A curvilinear supraumbilical incision was made using the scalpel. The subcutaneous tissues were dissected bluntly and with cautery. The hernia sac was identified. The umbilical attachments to the fascia were divided using electrocautery. The patient had 2 small defects at the base of the umbilicus. One measured only 2 to 3 mm in size and the other was about 8 mm in size. There was a thin bridge of fascia between the 2 that was divided. We now had a defect measuring 1.2 x 1 cm. No additional defects were seen. The preperitoneal space was then dissected using blunt dissection and electroca utery. The 4.3 cm ventral ex mesh was placed beneath the fascia and sutured in place using trans-fascial 0 Ethibond sutures. The defect was closed using interrupted vest over pants 0 Ethibond mattress sutures. The subcutaneous tissues were reapproximated using inverted 2-0 & 3-0 Vicryl sutures. The umbilicus was tacked back down to the fascia using a 2-0 Vicryl suture. The skin was closed using 4-0 Monocryl sutures. Skin glue and sterile dressings were then applied. HERNIA CHARACTERISTICS: Length: 1.2 cm Width: 1 cm Type: Umbilical TYPE OF MESH USED: 4.3 cm Ventralex LOCATION OF MESH: Sublay FIXATION: 0 Ethibond PREOPERATIVE DISCUSSION ON SMOKING CESSASTION: Yes PREOPERATIVE DISCUSSION ON MORBID OBESITY: Yes PREOPERATIVE DISCUSSION ON APPROPRIATE USE OF NARCOTIC USE: Yes PREOPERATIVE EDUCATION: Multi Modal, Smoking Cessation and Weight Loss with BMI over 35. DISPOSITION: Stable to recovery room
[2024-12-13 11:53] VITALS: TEMP 98.6
[2024-12-13] MEDS: LACTATED RINGERS 1,000 ML IV SCH (11:56)
[2024-12-13] MEDS ORDERED: ACETAMINOPHEN TAB 325 MG TAB PO SCH (12:00)
[2024-12-13] MEDS: FAMOTIDINE 20 MG/2 ML VIAL IV STA (12:10)
--- NOTE | 2024-12-13 12:10 | P.ANPRN ---
Procedure Note - Anesthesia - Nerve Block Performed Bilateral Erector Spinae Single Time Out Performed: Yes Date of Procedure: 12/13/24 Procedure Start Time: :39 Procedure Stop Time: :44 Location of Patient: PreOp Indication: Acute Post-Operative Pain, Analgesia, Requested by Surgeon Sedation Type: Sedate with meaningful contact maintained Preparation: Sterile Prep Position: Prone Catheter: None Needle Types: Pajunk Needle Gauge: 21 Ultrasound used to visualize needle placement: Yes Ultrasound used to observe medication spread: Yes Injectate: 0.5% Ropivacaine (see comment for volume) (Ropiv 20ml+Jcmhrwzt0nd, Needle level A90---Rfvg side (Resident)) Blood Aspirated: No Pain Paresthesia on Injection Noted: No Resistance on Injection: Normal Image Stored and Saved: Yes Events: Uneventful and Well Tolerated
[2024-12-13] MEDS: droPERidol 2.5 MG/ML VIAL IVP STA (12:18)
[2024-12-13 13:23] VITALS: RESP 16
[2024-12-13 13:59] VITALS: BP 125/88; PULSE 94
[2024-12-13] MEDS ORDERED: IBUPROFEN 600 MG TAB PO SCH (15:00)
== END 2024-12-13 14:29 | disposition home or self-care (01) ==
LOC: OR 07:47
PROVIDERS: ATTEND Surgery
DX: K42.9 Umbilical hernia without obstruction or gangrene (principal); G89.18 Other acute postprocedural pain; I10 Essential (primary) hypertension; E06.3 Autoimmune thyroiditis; K21.9 Gastro-esophageal reflux disease without esophagitis; G43.909 Migraine, unspecified, not intractable, without status migrainosus; Z98.890 Other specified postprocedural states
CPT/HCPCS: 49591; 81025; 64999; C1781; J2250; J0330; J1644; J1100; J2710; J0690; J2405; J2003; J3010; J3490; J2795; J1885; J2704; J0665; J1596; J1790

== ENCOUNTER → 2025-01-24 | Outpatient (CLI) | payer BC ==
--- NOTE | 2025-01-25 18:32 | US ---
EXAMINATION TYPE: US transvaginal DATE OF EXAM: 01/24/2025 COMPARISON: US 2019 CLINICAL INDICATION: Female, 34 years old with history of N92.0 EXCESSIVE AND FREQUENT MENSTRUATION W ITH REG; Menorrhagia. Hx 2 D and C, 2 miscarriages. TECHNIQUE: Transvaginal (TV). Doppler imaging: Not performed. FINDINGS: Date of LMP: Unknown EXAM MEASUREMENTS: Uterus: 7.5 x 3.8 x 5.5 cm Endometrial Stripe: 1.19 cm Right Ovary: Obscured Left Ovary: Obscured 1. Uterus: Anteverted Heterogeneous. *Subcentimeter anechoic areas seen in cervix compatible with nabothian cysts 2. Endometrium: Measures 1.19 cm 3. Right Ovary: Obscured 4. Left Ovary: Obscured 5. Bilateral Adnexa: Anechoic fluid seen in left adnexa: 1.7 x 0.9 x 0.9 cm. 6. Posterior cul-de-sac: Appears wnl IMPRESSION: 1. No acute pelvic ultrasound abnormality. 2. Somewhat limited exam with nonvisualization of the ovaries O-RADS 2021 [email or web address] [email or web address], , 01/25/2025 6:30 PM
== END | disposition home or self-care (01) ==
LOC: RADUSWWP 15:27
PROVIDERS: ATTEND Family Medicine
DX: N92.0 Excessive and frequent menstruation with regular cycle (principal)
CPT/HCPCS: 76830